=== PATIENT | male | born 1960 | race Caucasian/White ===

== ENCOUNTER 2025-06-05 13:44 | Inpatient (IN) | payer BC, SELFPAY ==
[2025-06-05] VITALS (8 sets, daily range): BP systolic 139–209; BP diastolic 70–99; PULSE 53–65; RESP 12–19; TEMP 36.5–36.6; O2SAT 95–99; BMI 31.8
--- NOTE | ~2025-06-05 | CT_ITS ---
EXAMINATION: CT HEAD WITHOUT CONTRAST CLINICAL INFORMATION: Altered mental status COMPARISON: None available. TECHNIQUE: Contiguous axial imaging was performed from the skull base to vertex without intravenous administration of contrast. This CT examination was performed using dose optimization techniques as appropriate, variously including the following: *Automated exposure control *Adjustment of mA and/or kV according to patient size (this includes techniques or standardized protocols for targeted exams where dose is matched to indication/reason for exam; i.e. extremities or head) *Use of iterative reconstruction technique DLP: 882 mGY*cm FINDINGS: There is no acute ischemic change. There is multifocal periventricular hypodensity in the white matter. There is mild frontal temporal atrophy. There is no intracranial hemorrhage. There is no mass-effect or midline shift. Basal cisterns and ventricles are within normal limits for age/cerebral volume. Orbits are symmetrical and unremarkable. Paranasal sinuses and mastoid air cells are pneumatized. There are no bony abnormalities. CT/CT head/brain wo IV con IMPRESSION: No acute intracranial abnormality. Electronically signed by: Amrit Villasenor MD 06/07/2025 12:12 PM EDT
--- NOTE | ~2025-06-05 | MR_ITS ---
EXAMINATION: MR BRAIN WITHOUT IV CONTRAST HISTORY: ams, echolalia TECHNIQUE: Sagittal T1, and axial T1, FLAIR, T2, gradient echo, and diffusion weighted MR images of the brain were obtained. COMPARISON: Correlation is made with an unenhanced head CT dated 06/07/2025. FINDINGS: There are periventricular and subcortical white matter hyperintensities on the FLAIR and T2-weighted images which are nonspecific, but often seen in the setting of small vessel ischemic disease. 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 The ventricular system is normal in size and configuration. The pituitary is normal in size. The cerebellar tonsils are normally located. There is no mass effect or midline shift. There is no evidence of acute intracranial hemorrhage. There are no foci of restricted diffusion. Normal vascular flow voids are noted in the basilar and carotid arteries. The visualized paranasal sinuses are clear. MR/MR head/brain wo con IMPRESSION: No acute intracranial abnormality. Electronically signed by: Samy Solis MD 06/08/2025 03:19 PM EDT
--- NOTE | ~2025-06-05 | CT_ITS ---
CLINICAL HISTORY: rashawn, URINARY RETENTION ON POCUS CT abdomen and pelvis without IV contrast. COMPARISON: None provided. FINDINGS: Partially visualized lung bases are unremarkable. Multiple cholelithiasis present within the gallbladder. No pericholecystic inflammatory changes. Well-defined hypoattenuating lesions present within the liver measuring up to 2.0 cm, largest are consistent with hepatic cysts and smaller ones are too small to further characterize but also likely represent hepatic cysts or hemangiomas. Noncontrast appearance of the spleen, pancreas and adrenal glands are unremarkable. Small extrarenal pelvis present on the left. No left renal or ureteral calculus. Right renal cystic lesion measuring up to 6.2 cm. There is mild edema along the right renal pelvis. Moderate right hydronephrosis. Mild right hydroureter. No right renal or ureteral calculus. Diminutive appendix. No bowel obstruction. No mesenteric or retroperitoneal lymphadenopathy. Normal abdominal aorta. Velasquez catheter present within the contracted urinary bladder. Small amount of gas within the urinary bladder is likely secondary to instrumentation. No inguinal lymphadenopathy. Mild edema within the presacral soft tissues. [id number] spondylosis. No acute fracture or suspicious bone lesion. IMPRESSION: 1. Mild inflammatory changes along the right kidney raises suspicion for pyelonephritis. No renal or ureteral calculus bilaterally. 2. Cholelithiasis. No stigmata of cholecystitis. This document has been electronically signed by: Reji Márquez MD on 06/05/2025 20:06:18
[2025-06-05 16:30] LABS: MANUAL DIFF FLAG NO
[2025-06-05 16:34] LABS: Appearance Urine Cloudy; Glucose Urine UA Negative (Negative); PH 5.5 (5.0-9.0); Specific Gravity - Urine 1.010 (1.005-1.025); UMIC TRIGGER UACC YES
[2025-06-05 16:40] LABS: Hematocrit 39.7 % (42.0-52.0); Hemoglobin 13.5 g/dl (14.0-18.0); Imm Gran Abs Auto 0.04 X10*3/uL (0.00-0.03); Imm Gran Pct Auto 0.4 % (0.0-0.4); Lymphocytes Absolute Auto 2.0 X10*3/uL (1.2-4.9); Mean Corpuscular HGB Conc 34.0 g/dl (31.0-36.0); Mean Corpuscular Hemoglobin 31.1 pg (27.0-33.0); Mean Corpuscular Volume 91.5 fL (80.0-98.0); NRBC Abs Auto 0.000 X10*3/uL (0.0-0.012); NRBC Pct Auto 0.0 /100WBC (0.0-0.2); Platelet Count 421 X10*3/uL (160-400); Red Blood Count 4.34 X10*6/uL (4.60-5.80); White Blood Count 9.5 X10*3/uL (4.8-10.8)
[2025-06-05 16:51] LABS: Other Crystals Urine Present
[2025-06-05 16:53] LABS: Alanine Aminotransferase 17 U/L (0-40); Albumin Level 4.2 g/dL (3.5-5.0); Alkaline Phosphatase 74 U/L (39-117); Anion Gap 17 (12-20); Aspartate Amino Transferase 20 U/L (5-37); Blood Urea Nitrogen 65 mg/dL (9-16); Calcium 9.3 mg/dL (8.4-10.2); Carbon Dioxide 18 mmol/L (22-29); Chloride 111 mmol/L (96-108); Creatinine Clr Calc Pharmacy 6.0; Estimated Glomerular Filt Rate 4; Magnesium 2.4 mg/dL (1.6-2.6); Potassium 6.0 mmol/L (3.3-5.1); Sodium 140 mmol/L (135-145); Total Protein 7.5 g/dL (6.5-8.0)
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
--- NOTE | 2025-06-05 18:10 | ECG_ITS ---
Test Reason : HYPERKALEMIA Blood Pressure : */* mmHG Vent. Rate : 58 BPM Atrial Rate : 58 BPM P-R Int : 154 ms QRS Dur : 86 ms QT Int : 400 ms P-R-T Axes : 21 -24 12 degrees QTcB Int : 392 ms Sinus bradycardia Minimal voltage criteria for LVH, may be normal variant ( R in aVL ) Borderline ECG No previous ECGs available Referred By: Ángel Peres Electronically Signed By: LAYLA DE LA CRUZ
[2025-06-05] MEDS: Lidocaine HCl 2 % Urojet 10 ML JEL.PF.APP TOPICAL (18:32)
[2025-06-05] MEDS: Furosemide 40 MG/4 ML VIAL IVPUSH (19:12)
[2025-06-05 19:26] LABS: VBG HCO3 17 mmol/L (22-26); VBG O2 % Saturation 82.0 %
[2025-06-05 19:26] LABS: Venous Blood Gas Refer to POC result
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
--- NOTE | 2025-06-05 20:12 | PHA.MEDREC ---
Pharmacy Consult ? Medication Reconciliation Pharmacy has completed the medication reconciliation. med rec complete using medical records and pharmacy claims
[2025-06-05] MEDS: Calcium Gluconate/NaCl,Iso-Osm 2 GM/100 ML PLAST..BAG IV (20:17)
[2025-06-05] MEDS: Lactated Ringers 1,000 ML 100 ML IVCONT (21:55)
[2025-06-06] VITALS (8 sets, daily range): BP systolic 154–178; BP diastolic 72–118; PULSE 56–80; RESP 16–20; TEMP 36.5–37.1; O2SAT 93–97; BMI 28.9
[2025-06-06 04:56] LABS: Hematocrit 41.8 % (42.0-52.0); Hemoglobin 14.3 g/dl (14.0-18.0); Mean Corpuscular HGB Conc 34.2 g/dl (31.0-36.0); Mean Corpuscular Hemoglobin 31.0 pg (27.0-33.0); Mean Corpuscular Volume 90.7 fL (80.0-98.0); NRBC Abs Auto 0.000 X10*3/uL (0.0-0.012); NRBC Pct Auto 0.0 /100WBC (0.0-0.2); Platelet Count 424 X10*3/uL (160-400); Red Blood Count 4.61 X10*6/uL (4.60-5.80); White Blood Count 8.9 X10*3/uL (4.8-10.8)
[2025-06-06 05:26] LABS: Anion Gap 19 (12-20); Blood Urea Nitrogen 45 mg/dL (9-16); Calcium 10.0 mg/dL (8.4-10.2); Carbon Dioxide 18 mmol/L (22-29); Chloride 111 mmol/L (96-108); Creatinine Clr Calc Pharmacy 13.6; Estimated Glomerular Filt Rate 9; Potassium 6.2 mmol/L (3.3-5.1); Sodium 142 mmol/L (135-145)
[2025-06-06] MEDS: Calcium Gluconate/NaCl,Iso-Osm 2 GM/100 ML PLAST..BAG IV (06:26)
[2025-06-06] MEDS: Lactated Ringers 1,000 ML 100 ML IVCONT (07:34)
--- NOTE | 2025-06-06 09:19 | P.CONNP_ITS ---
History of Present Illness Reason for Consult Consult date: 06/06/25 Chief Complaint Chief complaint: difficulty urinating History of Present Illness Narrative: 65 y/o male with no known medial history and not taking any prescription medication- reports has not been seen by a doctor in 30+ years. Takes PRN aleve for back pain. 06/05 patient reports he came in with sweating- denies urinary incontinence. creatinine was 14.18, K 6.0, serum bicarb 17. UA wtihout protein, +blood, +WBCs. melendez catheter was placed and drained 1300cc urine. CT subsequently done post melendez insertion: moderate right hydro and mild hydroureter, no stones. Mild inflammatory changes in kidney, suspicious for pyelonephritis- patient started on abx. He is on LR at 100ml/hr. creatinine this a.m. down to 6.31- about 12 hours after creatinine 14.18 patient reports he is feeling in his normal state of health. Melendez catheter is in place. Patient reports catheter insertion was painful, otherwise no concerns/complaints. Review of Systems Constitutional: Reports no additional constitutional complaints Cardiovascular: Denies chest pain, Denies leg edema, Denies lightheadedness and Denies dyspnea Respiratory: Denies dyspnea Gastrointestinal: Denies abdominal pain, Denies diarrhea, Denies nausea and Denies vomiting Genitourinary: Denies hematuria, Reports oliguria, Reports difficulty urinating, Denies dysuria and Denies flank pain Musculoskeletal: Denies back pain and Denies arthralgias Skin/Breast: Denies rash PMFSH Social History Social History Patient Tobacco Use Status: Never used Tobacco Smoked in Last 30 Days: No Use of substances other than those prescribed or required for medical reasons: No Advance Directives: No Advance Directives Information Provided: No Nutrition Risks: No Nutritional Risk Meds Allergies Allergy/AdvReac Type Severity Reaction Status Date / Time No Known Allergies Allergy Verified 06/05/25 14:09 Active Medications: Current Medications Acetaminophen (Acetaminophen 325 Mg Tablet) 650 mg PO Q6H PRN PRN Reason: Pain, Mild 1-3,fever,headache Calcium Carbonate (Calcium Carbonate 750 Mg Tab.Chew) 750 mg PO Q4H PRN PRN Reason: Heartburn Ceftriaxone Sodium (Ceftriaxone Sodium 1 Gm Vial) 1 gm IVPUSH Q24H [facility] Last Admin: 06/05/25 21:50 Dose: 1 gm Heparin Sodium (Porcine) (Heparin Sodium,Porcine 5,000 Unit/Ml Vial) 5,000 unit SUBCUT Q12H [facility] Last Admin: 06/06/25 08:28 Dose: 5,000 unit Lactated Ringer's (Lr) 1,000 mls @ 100 mls/hr IVCONT .Q10H [facility] Last Admin: 06/06/25 07:34 Dose: 100 mls/hr Magnesium Hydroxide (Milk Of Magnesia 30 Ml Oral.Susp) 30 ml PO DAILY PRN PRN Reason: Constipation Melatonin (Melatonin 3 Mg Tablet) 6 mg PO BEDTIME PRN PRN Reason: Insomnia Ondansetron HCl (Ondansetron Hcl 4 Mg/2 Ml Vial) 4 mg IVPUSH Q8H PRN PRN Reason: Nausea and Vomiting Sodium Chloride (0.9 % Sodium Chloride Flush 3 Ml Syringe) 3 ml IVFLUSH QSHIFT [facility] Last Admin: 06/06/25 07:34 Dose: Not Given Home Medications ?Medication ?Instructions ?Recorded ?Confirmed ?Last Taken ?Type No Known Home Meds 06/05/25 06/05/25 Un known History Physical Exam Vital Signs: Last Vital Signs Temp 98.0 F 06/06/25 06:13 Pulse 71 06/06/25 06:13 Resp 17 06/06/25 06:13 BP 166/118 H 06/06/25 06:13 Pulse Ox 97 06/06/25 06:13 O2 Del Method Nasal Cannula 06/06/25 06:13 O2 Flow Rate 2 06/06/25 06:13 BMI result Body Mass Index 31.8 Const General: no acute distress, alert and awake Resp Effort & Inspection: normal respiratory effort and able to speak in complete sentences Auscultation: clear to auscultation bilaterally Cardio Rate: regular rate Rhythm: regular rhythm Heart sounds: S1 normal heart sound present and S2 normal heart sound present GI Palpation (GI): Soft to palpation and nontender General: Yes no CVA tenderness Back/Spine/Pelvis Back: no CVA tenderness Skin Rashes: no rashes Extrem General: Yes edema (trace BLE edema) Results Lab Results 06/06/25 04:36 06/06/25 04:36 Lab results: Chemistry 06/05/25 06/06/25 16:25 04:36 Sodium 140 142 Potassium 6.0 H* 6.2 H* Carbon Dioxide 18 L 18 L BUN 65 H 45 H Creatinine 14.18 H* 6.31 H* Calcium 9.3 10.0 D Hematology 06/05/25 06/06/25 16:25 04:36 WBC 9.5 8.9 Hgb 13.5 L 14.3 Plt Count 421 H 424 H Urinalysis 06/05/25 16:15 Urine Color Yellow Urine Appearance Cloudy Urine pH 5.5 Ur Specific [place] 1.010 Urine Protein Negative Urine Glucose (UA) Negative Urine Ketones Negative Urine Blood Moderate (2+) H Urine Nitrite Negative Ur Leukocyte Esterase Trace H Urine RBC >20 H Urine WBC 0-5 Ur Squamous Epith Cells 0-2 Hyaline Casts 0-2 Assessment and Plan (1) Acute renal failure: Qualifiers: Acute renal failure type: unspecified Qualified Code(s): N17.9 - Acute kidney failure, unspecified Status: Acute (2) Hydronephrosis, right: Status: Acute (3) Urinary obstruction: Status: Acute Plan GUILLERMO secondary to urinary obstruction renal function is improving with resolution of obstruction. Anticipate continued improvement to baseline creatinine now that obstruction is resolved. Unclear baseline creatinine. Recommend re-checking renal function and electrolytes this afternoon. PRN lokelma for hyperkalemia. recommend urology consult recommend daily renal function and electrolyte studies recommend I&O monitoring, blood pressure checks recommend avoiding nephrotoxins continue supportive care Discussed with Dr Abreu Procedures Date of Service Date of Service: 06/06/25
--- NOTE | 2025-06-06 10:18 | HO.PM.IMPN ---
Subjective Subjective Date of Service: 06/06/25 Interval History: no complaints Physical Exam Vital Signs: Vital Signs: Last Vital Signs Temp 98.0 F 06/06/25 06:13 Pulse 71 06/06/25 06:13 Resp 17 06/06/25 06:13 BP 166/118 H 06/06/25 06:13 Pulse Ox 97 06/06/25 06:13 O2 Del Method Nasal Cannula 06/06/25 06:13 O2 Flow Rate 2 06/06/25 06:13 BMI result Body Mass Index 31.8 General: AO X 3, no acute distress Resp: CTA bilateral, no accessory muscles used CVS: S1,S2,RRR GI: soft, non tender, non distended Neuro: motor grossly intact, alert Psych: appropriate affect, appropriate insight Objective Data Active Medications Acetaminophen (Acetaminophen 325 Mg Tablet) 650 mg PO Q6H PRN PRN Reason: Pain, Mild 1-3,fever,headache Calcium Carbonate (Calcium Carbonate 750 Mg Tab.Chew) 750 mg PO Q4H PRN PRN Reason: Heartburn Ceftriaxone Sodium (Ceftriaxone Sodium 1 Gm Vial) 1 gm IVPUSH Q24H [facility] Last Admin: 06/05/25 21:50 Dose: 1 gm Documented By: MILADYS Heparin Sodium (Porcine) (Heparin Sodium,Porcine 5,000 Unit/Ml Vial) 5,000 unit SUBCUT Q12H [facility] Last Admin: 06/06/25 08:28 Dose: 5,000 unit Documented By: GABBIE Lactated Ringer's (Lr) 1,000 mls @ 100 mls/hr IVCONT .Q10H [facility] Last Admin: 06/06/25 07:34 Dose: 100 mls/hr Documented By: GABBIE Magnesium Hydroxide (Milk Of Magnesia 30 Ml Oral.Susp) 30 ml PO DAILY PRN PRN Reason: Constipation Melatonin (Melatonin 3 Mg Tablet) 6 mg PO BEDTIME PRN PRN Reason: Insomnia Ondansetron HCl (Ondansetron Hcl 4 Mg/2 Ml Vial) 4 mg IVPUSH Q8H PRN PRN Reason: Nausea and Vomiting Sodium Chloride (0.9 % Sodium Chloride Flush 3 Ml Syringe) 3 ml IVFLUSH QSHIFT [facility] Last Admin: 06/06/25 07:34 Dose: Not Given Documented By: GABBIE Non-Admin Reason: IV Running Labs 06/06/25 04:36 06/06/25 04:36 Labs: Laboratory Results - last 24 hr 06/05/25 06/05/25 06/05/25 16:15 16:25 19:22 MCV 91.5 MCH 31.1 MCHC 34.0 RDW 12.2 Plt Count 421 H MPV 10.1 Immature Gran % (Auto) 0.4 Neut % (Auto) 66.4 Lymph % (Auto) 20.8 [place] % (Auto) 8.1 Eos % (Auto) 3.3 Baso % (Auto) 1.0 Lymph # (Auto) 2.0 [place] # (Auto) 0.8 Eos # (Auto) 0.3 Baso # (Auto) 0.1 Abs Immat Gran (auto) 0.04 H Absolute Neuts (auto) 6.3 Absolute Nucleated RBC 0.000 Nucleated RBC % (auto) 0.0 VBG pH 7.23 L VBG pCO2 40 VBG pO2 59 VBG HCO3 17 L VBG O2 Saturation 82.0 VBG Base Excess -9.5 Anion Gap 17 Estim Creat Clear Calc 6.0 Estimated GFR 4 Random Glucose 113 Calcium 9.3 Magnesium 2.4 Total Bilirubin 0.2 AST 20 ALT 17 Alkaline Phosphatase 74 Total Creatine Kinase 47 Total Protein 7.5 Albumin 4.2 Urine Color Yellow Urine Appearance Cloudy Urine pH 5.5 Ur Specific [place] 1.010 Urine Protein Negative Urine Glucose (UA) Negative Urine Ketones Negative Urine Blood Moderate (2+) H Urine Nitrite Negative Ur Leukocyte Esterase Trace H Urine RBC >20 H Urine WBC 0-5 Ur Squamous Epith Cells 0-2 Other Crystals Present Urine Bacteria None Seen Hyaline Casts 0-2 06/06/25 04:36 MCV 90.7 MCH 31.0 MCHC 34.2 RDW 12.3 Plt Count 424 H MPV 10.5 Immature Gran % (Auto) Neut % (Auto) Lymph % (Auto) [place] % (Auto) Eos % (Auto) Baso % (Auto) Lymph # (Auto) [place] # (Auto) Eos # (Auto) Baso # (Auto) Abs Immat Gran (auto) Absolute Neuts (auto) Absolute Nucleated RBC 0.000 Nucleated RBC % (auto) 0.0 VBG pH VBG pCO2 VBG pO2 VBG HCO3 VBG O2 Saturation VBG Base Excess Anion Gap 19 Estim Creat Clear Calc 13.6 Estimated GFR 9 Random Glucose 98 Calcium 10.0 D Magnesium Total Bilirubin AST ALT Alkaline Phosphatase Total Creatine Kinase Total Protein Albumin Urine Color Urine Appearance Urine pH Ur Specific [place] Urine Protein Urine Glucose (UA) Urine Ketones Urine Blood Urine Nitrite Ur Leukocyte Esterase Urine RBC Urine WBC Ur Squamous Epith Cells Other Crystals Urine Bacteria Hyaline Casts Assessment and Plan (1) Hydronephrosis, right: Status: Acute Plan 65M no significant pmh presented with weakness found to have GUILLERMO and urinary retention GUILLERMO due to urinary retention, hyperkalemia melendez, ivf, monitor labs, nephro and following starting flomax dvt prophylaxis - hep sq full code reason for continued hospitalization:guillermo, hyperkalemia Quality Stroke Does the patient have a stroke diagnosis?: No VTE Prior VTE?: No VTE Risk Level:: Medical - moderate - high VTE Device Contraindication: Treatment Not Indicated VTE Drug Contraindication: N/A - Med Ordered
[2025-06-06] MEDS: Sodium Bicarbonate 8.4% 150 MEQ in Dextrose 5 % 850 ML 100 MEQ IV (12:29)
[2025-06-06 13:24] LABS: Anion Gap 17 (12-20); Blood Urea Nitrogen 30 mg/dL (9-16); Calcium 10.4 mg/dL (8.4-10.2); Carbon Dioxide 21 mmol/L (22-29); Chloride 108 mmol/L (96-108); Creatinine Clr Calc Pharmacy 24.8; Estimated Glomerular Filt Rate 18; Potassium 5.3 mmol/L (3.3-5.1); Sodium 141 mmol/L (135-145)
--- NOTE | 2025-06-06 14:31 | MHC.CM.PN ---
Pt lives alone, he does not have a PCP, Cm asked if he wanted info on getting one, he did not answer. 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 Pt. can arrange a ride home at DC. CM will follow for DC needs.
[2025-06-06] MEDS: 0.9 % Sodium Chloride Flush 3 ML SYRINGE IVFLUSH ×2 (14:43→20:32)
[2025-06-06 16:22] LABS: Anion Gap 14 (12-20); Blood Urea Nitrogen 28 mg/dL (9-16); Calcium 10.5 mg/dL (8.4-10.2); Carbon Dioxide 25 mmol/L (22-29); Chloride 109 mmol/L (96-108); Creatinine Clr Calc Pharmacy 27.2; Estimated Glomerular Filt Rate 21; Potassium 5.0 mmol/L (3.3-5.1); Sodium 143 mmol/L (135-145)
--- NOTE | 2025-06-06 17:12 | P.CNUR_ITS ---
History of Present Illness Consult details Consult date: 06/06/25 Narrative: CC: Acute urinary retention - with acute kidney injury 65-year-old male Presents to emergency room with chills and difficulty urination Has no regular medical interaction Baseline labs creatinine 14, potassium 6, BUN 65 Initiate a Nephrology protocol on bicarb Velasquez catheter placed for only 300 cc output Per documentation had 1600 cc in ER. Discrepancy between initial output and subsequent output. May have element of postobstructive diuresis Creatinine has fallen from 14 to 3 over 24 hours, WBC 8.9, UA positive blood trace leukocytes no bacteria Imaging - CT There is mild edema along the right renal pelvis. Moderate right hydronephrosis. Mild right hydroureter. No right renal or ureteral calculus. Recommend Velasquez catheter to remain to creatinine normal range then voiding trial to be performed after minimum 24 hours on alpha-davide Review of Systems 2 Constitutional: Constitutional: Denies chills and Denies fever(s) Cardiovascular: Cardiovascular: Reports no additional cardiovascular complaints and Denies syncope Respiratory: Respiratory: Denies cough Gastrointestinal: Gastrointestinal: Denies abdominal pain and Denies heartburn Genitourinary: Genitourinary: Reports as per HPI and Denies change in libido Neurologic: Denies syncope Psychiatric: Psychiatric: Denies change in libido Endocrine: Endocrine: Denies change in libido [facility] Social History Social History Household Members: None Housing: Other Housing Other:: MOBILE HOME Do you presently have visiting nurse or other home services: No Patient Tobacco Use Status: Never used Tobacco service: Yes Meds Allergies Allergy/AdvReac Type Severity Reaction Status Date / Time No Known Allergies Allergy Verified 06/05/25 14:09 Active Medications: Current Medications Acetaminophen (Acetaminophen 325 Mg Tablet) 650 mg PO Q6H PRN PRN Reason: Pain, Mild 1-3,fever,headache Calcium Carbonate (Calcium Carbonate 750 Mg Tab.Chew) 750 mg PO Q4H PRN PRN Reason: Heartburn Ceftriaxone Sodium (Ceftriaxone Sodium 1 Gm Vial) 1 gm IVPUSH Q24H [facility] Last Admin: 06/05/25 21:50 Dose: 1 gm Heparin Sodium (Porcine) (Heparin Sodium,Porcine 5,000 Unit/Ml Vial) 5,000 unit SUBCUT Q12H [facility] Last Admin: 06/06/25 08:28 Dose: 5,000 unit Sodium Bicarbonate 150 meq/ (Dextrose) 1,000 mls @ 100 mls/hr IV .Q10H [facility] Last Admin: 06/06/25 12:29 Dose: 100 mls/hr Magnesium Hydroxide (Milk Of Magnesia 30 Ml Oral.Susp) 30 ml PO DAILY PRN PRN Reason: Constipation Melatonin (Melatonin 3 Mg Tablet) 6 mg PO BEDTIME PRN PRN Reason: Insomnia Ondansetron HCl (Ondansetron Hcl 4 Mg/2 Ml Vial) 4 mg IVPUSH Q8H PRN PRN Reason: Nausea and Vomiting Sodium Chloride (0.9 % Sodium Chloride Flush 3 Ml Syringe) 3 ml IVFLUSH QSHIFT [facility] Last Admin: 06/06/25 14:43 Dose: 3 ml Tamsulosin HCl (Tamsulosin Hcl 0.4 Mg Capsule) 0.4 mg PO BEDTIME [facility] Home Medications ?Medication ?Instructions ?Recorded ?Confirmed ?Last Taken ?Type No Known Home Meds 06/05/25 06/05/25 Un known History Physical Exam 2 Vital Signs: Vital Signs: Last Vital Signs Temp 98.6 F 06/06/25 15:18 Pulse 70 06/06/25 15:18 Resp 16 06/06/25 15:18 BP 158/72 H 06/06/25 15:18 Pulse Ox 93 06/06/25 15:18 O2 Del Method Room Air 06/06/25 15:18 O2 Flow Rate 2 06/06/25 06:13 BMI result Body Mass Index 28.9 Const: General: cooperative, healthy appearing, comfortable and no acute distress Orientation/consciousness: patient oriented x3 HEENT: Face and sinus: Yes normal facial exam Mouth: moist mucous membranes Neck: Neck: Yes normal visual inspection, Yes full ROM and Yes trachea midline Chest: Chest palpation & inspection: normal inspection of the chest Resp: Effort & Inspection: normal respiratory effort, able to speak in complete sentences and no respiratory distress GI: Inspection: Yes normal to inspection Back/Spine/Pelvis: Cervical Spine: normal cervical lordosis Thoracic/Lumbar Spine: thoracic and lumbar spine normal to inspection Skin: General skin exam: no rashes or lesions noted Neuro: General: patient oriented x3, gait normal, tone normal and moves all extremities Extrem: General: Yes normal to inspection and Yes capillary refill normal Results Labs 06/06/25 04:36 06/06/25 15:54 Labs: Abnormal lab results 06/05/25 06/06/25 06/06/25 Range/Units 19:22 04:36 13:01 Hct 41.8 L (42.0-52.0) % Plt Count 424 H (160-400) X10*3/uL VBG pH 7.23 L (7.32-7.43) VBG HCO3 17 L (22-26) mmol/L Potassium 6.2 H* 5.3 H (3.3-5.1) mmol/L Chloride 111 H (96-108) mmol/L Carbon Dioxide 18 L 21 L (22-29) mmol/L BUN 45 H 30 H (9-16) mg/dL Creatinine 6.31 H* 3.46 H (0.5-1.4) mg/dL Random Glucose (60-115) mg/dL Calcium 10.4 H (8.4-10.2) mg/dL 06/06/25 Range/Units 15:54 Hct (42.0-52.0) % Plt Count (160-400) X10*3/uL VBG pH (7.32-7.43) VBG HCO3 (22-26) mmol/L Potassium (3.3-5.1) mmol/L Chloride 109 H (96-108) mmol/L Carbon Dioxide (22-29) mmol/L BUN 28 H (9-16) mg/dL Creatinine 3.02 H (0.5-1.4) mg/dL Random Glucose 130 H (60-115) mg/dL Calcium 10.5 H (8.4-10.2) mg/dL Short CBC 06/06/25 Range/Units 04:36 WBC 8.9 (4.8-10.8) X10*3/uL Hgb 14.3 (14.0-18.0) g/dl Hct 41.8 L (42.0-52.0) % Plt Count 424 H (160-400) X10*3/uL BMP 06/06/25 06/06/25 06/06/25 04:36 13:01 15:54 Sodium 142 141 143 Potassium 6.2 H* 5.3 H 5.0 Chloride 111 H 108 109 H Carbon Dioxide 18 L 21 L 25 BUN 45 H 30 H 28 H Creatinine 6.31 H* 3.46 H 3.02 H Calcium 10.0 D 10.4 H 10.5 H Cardiac Enzymes 06/05/25 Range/Units 16:25 Total Creatine Kinase 47 (38-174) U/L Urine 06/05/25 Range/Units 16:15 Urine Color Yellow Urine Appearance Cloudy Urine pH 5.5 (5.0-9.0) Ur Specific [place] 1.010 (1.005-1.025) Urine Protein Negative (Neg-Trace) mg/dL Urine Glucose (UA) Negative (Negative) mg/dL All other labs normal. Assessment and Plan (1) Urinary obstruction: Status: Acute (2) Acute renal failure: Qualifiers: Acute renal failure type: unspecified Qualified Code(s): N17.9 - Acute kidney failure, unspecified Status: Acute (3) Hydronephrosis, right: Status: Acute Plan Nephrology recommendations for management of diuresis and acute kidney injury Discharge with tamsulosin Follow-up with urology Procedures Date of Service Date of Service: 06/06/25
--- NOTE | 2025-06-07 | EEG_ITS ---
Disease 16 channel EEG with an EKG lead. patient is awake during the tracing. Background EEG rhythm is slow alpha to theta range medium amplitude with no obvious paroxysmal tendency. No sharp waves or spikes are noted. Some lead and muscle artifacts are noted. Photic stimulation does not produce any significant driving. Cardiac lead does not reveal any significant abnormality. Impression: Abnormal EEG with generalized slowing without any epileptic discharges. MTDD
[2025-06-07] MEDS: Sodium Bicarbonate 8.4% 150 MEQ in Dextrose 5 % 850 ML 100 MEQ IV (01:43)
[2025-06-07 07:26] VITALS: BP 157/83; PULSE 75; RESP 18; TEMP 36.4; O2SAT 96
[2025-06-07 07:38] LABS: Hematocrit 42.7 % (42.0-52.0); Hemoglobin 15.1 g/dl (14.0-18.0); Mean Corpuscular HGB Conc 35.4 g/dl (31.0-36.0); Mean Corpuscular Hemoglobin 31.1 pg (27.0-33.0); Mean Corpuscular Volume 88.0 fL (80.0-98.0); NRBC Abs Auto 0.000 X10*3/uL (0.0-0.012); NRBC Pct Auto 0.0 /100WBC (0.0-0.2); Platelet Count 436 X10*3/uL (160-400); Red Blood Count 4.85 X10*6/uL (4.60-5.80); White Blood Count 13.1 X10*3/uL (4.8-10.8)
[2025-06-07 07:56] LABS: Anion Gap 12 (12-20); Blood Urea Nitrogen 17 mg/dL (9-16); Calcium 10.2 mg/dL (8.4-10.2); Carbon Dioxide 26 mmol/L (22-29); Chloride 104 mmol/L (96-108); Creatinine Clr Calc Pharmacy 49.5; Estimated Glomerular Filt Rate 42; Magnesium 1.5 mg/dL (1.6-2.6); Potassium 4.4 mmol/L (3.3-5.1); Sodium 138 mmol/L (135-145)
[2025-06-07] MEDS: Magnesium Sulfate/H2O 2 GM/50 ML PIGGYBACK IV (08:46)
[2025-06-07] MEDS: Lactated Ringers 1,000 ML 125 ML IVCONT ×3 (08:48→23:38)
--- NOTE | 2025-06-07 10:37 | P.PNNP_ITS ---
Subjective Subjective Date of Service: 06/07/25 Interval history: following for GUILLERMO secondary to urinary obstruction. creatinine has dramatically improved, baseline is unknown. Pt denies new symptoms today. Velasquez is still- plan for removal and voiding Physical Exam 2 Vital Signs: Vital Signs: Last Vital Signs Temp 97.5 F 06/07/25 07:26 Pulse 75 06/07/25 07:26 Resp 18 06/07/25 07:26 BP 157/83 H 06/07/25 07:26 Pulse Ox 96 06/07/25 07:26 O2 Del Method Room Air 06/07/25 07:26 O2 Flow Rate 2 06/06/25 06:13 BMI result Body Mass Index 28.9 Const: General: no acute distress, alert and awake Resp: Effort & Inspection: normal respiratory effort and able to speak in complete sentences Auscultation: clear to auscultation bilaterally Cardio: Rate: regular rate Rhythm: regular rhythm Heart sounds: S1 normal heart sound present and S2 normal heart sound present GI: Palpation (GI): Soft to palpation and nontender : General: Yes no CVA tenderness Back/Spine/Pelvis: Back: no CVA tenderness Skin: Rashes: no rashes Extrem: General: Yes edema (trace BLE edema) Objective Data Labs 06/07/25 07:30 06/07/25 07:30 Labs: Laboratory Results - last 24 hr 06/06/25 06/06/25 06/07/25 13:01 15:54 07:30 WBC 13.1 H RBC 4.85 Hgb 15.1 Hct 42.7 MCV 88.0 MCH 31.1 MCHC 35.4 RDW 11.9 Plt Count 436 H MPV 10.0 Absolute Nucleated RBC 0.000 Nucleated RBC % (auto) 0.0 Sodium 141 143 138 Potassium 5.3 H 5.0 4.4 Chloride 108 109 H 104 Carbon Dioxide 21 L 25 26 Anion Gap 17 14 12 BUN 30 H 28 H 17 H Creatinine 3.46 H 3.02 H 1.66 H Estim Creat Clear Calc 24.8 27.2 49.5 Estimated GFR 18 21 42 Random Glucose 94 130 H 140 H Calcium 10.4 H 10.5 H 10.2 Magnesium 1.5 L Procedures Date of Service Date of Service: 06/07/25 Assessment & Plan Assessment and plan (1) GUILLERMO (acute kidney injury): Status: Acute Plan GUILLERMO secondary to urinary obstruction renal function is improving with resolution of obstruction. Anticipate continued improvement to baseline creatinine now that obstruction is resolved. Unclear baseline creatinine. Given creatinine is 1.66 today and hyperkalemia has resolved, patient is ok for discharge from a renal standpoint. We will arrange a follow up appointment in the outpatient nephrology clinic. recommend avoiding nephrotoxins continue supportive care Discussed with Dr Abreu Time Spent With Patient Time: Total time managing care of this patient today ____ minutes. Progress Note: Quality Stroke Does the patient have a stroke diagnosis?: No
--- NOTE | 2025-06-07 10:46 | P.PNIM_ITS ---
Subjective Subjective Date of Service: 06/07/25 Interval History: pain at catheter Physical Exam 2 Vital Signs: Vital Signs: Last Vital Signs Temp 97.5 F 06/07/25 07:26 Pulse 75 06/07/25 07:26 Resp 18 06/07/25 07:26 BP 157/83 H 06/07/25 07:26 Pulse Ox 96 06/07/25 07:26 O2 Del Method Room Air 06/07/25 07:26 O2 Flow Rate 2 06/06/25 06:13 BMI result Body Mass Index 28.9 Const: General: cooperative, healthy appearing, comfortable and no acute distress Orientation/consciousness: patient oriented x3 HEENT: Face and sinus: Yes normal facial exam Mouth: moist mucous membranes Neck: Neck: Yes normal visual inspection, Yes full ROM and Yes trachea midline Chest: Chest palpation & inspection: normal inspection of the chest Resp: Effort & Inspection: normal respiratory effort, able to speak in complete sentences and no respiratory distress GI: Inspection: Yes normal to inspection Back/Spine/Pelvis: Cervical Spine: normal cervical lordosis Thoracic/Lumbar Spine: thoracic and lumbar spine normal to inspection Skin: General skin exam: no rashes or lesions noted Neuro: General: patient oriented x3, gait normal, tone normal and moves all extremities Extrem: General: Yes normal to inspection and Yes capillary refill normal Objective Data Active Medications Acetaminophen (Acetaminophen 325 Mg Tablet) 650 mg PO Q6H PRN PRN Reason: Pain, Mild 1-3,fever,headache Last Admin: 06/07/25 05:00 Dose: 650 mg Documented By: ELIEZER Calcium Carbonate (Calcium Carbonate 750 Mg Tab.Chew) 750 mg PO Q4H PRN PRN Reason: Heartburn Ceftriaxone Sodium (Ceftriaxone Sodium 1 Gm Vial) 1 gm IVPUSH Q24H [facility] Last Admin: 06/06/25 20:33 Dose: 1 gm Documented By: ELIEZER Heparin Sodium (Porcine) (Heparin Sodium,Porcine 5,000 Unit/Ml Vial) 5,000 unit SUBCUT Q12H [facility] Last Admin: 06/07/25 07:55 Dose: Not Given Documented By: TYRON Non-Admin Reason: Physician Held Med Lactated Ringer's (Lr) 1,000 mls @ 125 mls/hr IVCONT .Q8H [facility] Last Admin: 06/07/25 08:48 Dose: 125 mls/hr Documented By: TYRON Magnesium Hydroxide (Milk Of Magnesia 30 Ml Oral.Susp) 30 ml PO DAILY PRN PRN Reason: Constipation Melatonin (Melatonin 3 Mg Tablet) 6 mg PO BEDTIME PRN PRN Reason: Insomnia Ondansetron HCl (Ondansetron Hcl 4 Mg/2 Ml Vial) 4 mg IVPUSH Q8H PRN PRN Reason: Nausea and Vomiting Sodium Chloride (0.9 % Sodium Chloride Flush 3 Ml Syringe) 3 ml IVFLUSH QSHIFT [facility] Last Admin: 06/07/25 07:55 Dose: Not Given Documented By: TYRON Non-Admin Reason: IV Running Tamsulosin HCl (Tamsulosin Hcl 0.4 Mg Capsule) 0.4 mg PO BEDTIME [facility] Last Admin: 06/06/25 20:31 Dose: 0.4 mg Documented By: ELIEZER Labs 06/07/25 07:30 06/07/25 07:30 Labs: Laboratory Results - last 24 hr 06/06/25 06/06/25 06/07/25 13:01 15:54 07:30 MCV 88.0 MCH 31.1 MCHC 35.4 RDW 11.9 Plt Count 436 H MPV 10.0 Absolute Nucleated RBC 0.000 Nucleated RBC % (auto) 0.0 Anion Gap 17 14 12 Estim Creat Clear Calc 24.8 27.2 49.5 Estimated GFR 18 21 42 Random Glucose 94 130 H 140 H Calcium 10.4 H 10.5 H 10.2 Magnesium 1.5 L Assessment and Plan (1) Hydronephrosis, right: Status: Acute Plan 65M no significant pmh presented with weakness found to have GUILLERMO and urinary retention GUILLERMO due to urinary retention, hyperkalemia resolved, continue flomax, voiding trial, outpatinet urology follow up dvt prophylaxis - hep sq full code reason for continued hospitalization:vaoiding trial Quality Stroke Does the patient have a stroke diagnosis?: No VTE Prior VTE?: No VTE Risk Level:: Medical - moderate - high VTE Device Contraindication: Treatment Not Indicated VTE Drug Contraindication: N/A - Med Ordered
[2025-06-07 11:21] VITALS: BP 141/92; PULSE 79; RESP 18; TEMP 36.4; O2SAT 96
[2025-06-07 11:44] LABS: Venous Blood Gas Refer to POC result
[2025-06-07 11:45] LABS: VBG HCO3 23 mmol/L (22-26); VBG O2 % Saturation 99.0 %
[2025-06-07 11:49] LABS: Ammonia 38 umol/L (13-55)
--- NOTE | 2025-06-07 13:13 | PM.EVENT ---
Event Note Date of Service: 06/07/25 Event Note: patient with episodes of confusion, slurred speech, starrin, comes and goes ammonia, vbg, normal cth no acute path, some atrophy sistere states no etoh history ?dementia with delerium will try low dose benzo neuro eval Time Spent With Patient Time: Total time managing care of this patient today ____ minutes.
[2025-06-07] MEDS: diazePAM 10 MG/2 ML CARTRIDGE 2.5 MG IVPUSH (13:24)
--- NOTE | 2025-06-07 13:40 | PC.NURSE ---
patient had 2 episodes of mental status change, staring off, not following commands, mumbling...md notified and head CT ordered, also EEG and neuro consult pending. bed alarm and camera in room temporarily for safety
--- NOTE | 2025-06-07 15:11 | MHC.CM.PN ---
Per rounds, pt. to have voiding trial and then DC. Per EMR review, today he had some episodes of cognitive confusion, follow up neuro and testing pending.
[2025-06-07 15:13] VITALS: BP 169/81; PULSE 62; RESP 16; TEMP 36.6; O2SAT 96
--- NOTE | 2025-06-07 17:02 | P.CNNE_ITS ---
History of Present Illness Data of Consult Service Date: 06/07/25 Primary Care Provider: None Physician HPI Reason for consult: Confusion, slurring and staring spells This is a 65-year-old man with no pertinent medical history and not on prescription medications who presented to the emergency department for evaluation of chills, difficulty urinating,and thinks that he wet his bed at night. Also thinks he had night sweats but isn't sure. Has some right-sided abdominal discomfort, nonradiating, intermittent. No documented fever, chest pain, palpitations, shortness of breath, changes in bowel habits. States he has never had difficulty with urination before Patient states he has not seen a doctor in about 3 decades. He does not know of any past medical history and does not take any prescription medications. He only takes an Aleve as needed for back pain when riding his motorcycle. He had elevated Creat of 14.2 and BUN 65 which mitchell scome down to 1.66/[address] scan of the brain shows white matter disease mostly in periventricular distribution and some out of proportion frontal lobe atrophy. [facility] Social History Social History Household Members: None Housing: Other Housing Other:: MOBILE HOME Do you presently have visiting nurse or other home services: No Patient Tobacco Use Status: Never used Tobacco service: Yes Meds Allergies Allergy/AdvReac Type Severity Reaction Status Date / Time No Known Allergies Allergy Verified 06/05/25 14:09 Active Medications: Current Medications Acetaminophen (Acetaminophen 325 Mg Tablet) 650 mg PO Q6H PRN PRN Reason: Pain, Mild 1-3,fever,headache Last Admin: 06/07/25 05:00 Dose: 650 mg Calcium Carbonate (Calcium Carbonate 750 Mg Tab.Chew) 750 mg PO Q4H PRN PRN Reason: Heartburn Ceftriaxone Sodium (Ceftriaxone Sodium 1 Gm Vial) 1 gm IVPUSH Q24H [facility] Last Admin: 06/06/25 20:33 Dose: 1 gm Heparin Sodium (Porcine) (Heparin Sodium,Porcine 5,000 Unit/Ml Vial) 5,000 unit SUBCUT Q12H [facility] Last Admin: 06/07/25 07:55 Dose: Not Given Lactated Ringer's (Lr) 1,000 mls @ 125 mls/hr IVCONT .Q8H [facility] Last Admin: 06/07/25 16:25 Dose: 125 mls/hr Magnesium Hydroxide (Milk Of Magnesia 30 Ml Oral.Susp) 30 ml PO DAILY PRN PRN Reason: Constipation Melatonin (Melatonin 3 Mg Tablet) 6 mg PO BEDTIME PRN PRN Reason: Insomnia Ondansetron HCl (Ondansetron Hcl 4 Mg/2 Ml Vial) 4 mg IVPUSH Q8H PRN PRN Reason: Nausea and Vomiting Sodium Chloride (0.9 % Sodium Chloride Flush 3 Ml Syringe) 3 ml IVFLUSH QSHIFT [facility] Last Admin: 06/07/25 15:37 Dose: Not Given Tamsulosin HCl (Tamsulosin Hcl 0.4 Mg Capsule) 0.4 mg PO BEDTIME [facility] Last Admin: 06/06/25 20:31 Dose: 0.4 mg Home Medications ?Medication ?Instructions ?Recorded ?Confirmed ?Last Taken ?Type No Known Home Meds 06/05/25 06/05/25 Un known History Physical Exam 2 Vital Signs: Vital Signs: Last Vital Signs Temp 97.9 F 06/07/25 15:13 Pulse 62 06/07/25 15:13 Resp 16 06/07/25 15:13 BP 169/81 H 06/07/25 15:13 Pulse Ox 96 06/07/25 15:13 O2 Del Method Room Air 06/07/25 15:13 O2 Flow Rate 2 06/06/25 06:13 BMI result Body Mass Index 28.9 Neuro: Other: The patient was arousable after initially being deeply asleep, and remained quite alert after initially being very drowsy. He has echolalia and keeps repeating similar sentences with poor with incorrect syntax about sleep and using wrong words, transposing words such as the bed is sleeping . He has some mixed dysphasia, primarily receptive dysphasia. I could not adequately test his visual ang because he keeps talking and not following commands. He is oriented to person only. Cranial nerves are otherwise normal with no facial asymmetry and full extraocular movements. There is no obvious drift of the upper extremities or limb weakness. Neck is supple. Results Labs 06/07/25 07:30 06/07/25 07:30 Labs: Short CBC 06/07/25 Range/Units 07:30 WBC 13.1 H (4.8-10.8) X10*3/uL Hgb 15.1 (14.0-18.0) g/dl Hct 42.7 (42.0-52.0) % Plt Count 436 H (160-400) X10*3/uL [facility] 06/07/25 07:30 Sodium 138 Potassium 4.4 Chloride 104 Carbon Dioxide 26 BUN 17 H Creatinine 1.66 H Calcium 10.2 Assessment and Plan (1) Altered mental status: Status: Acute He appears to have some receptive dysphagia and echolalia suggestive of left parietal lobe dysfunction which could be a small acute infarct or possibly a seizure focus in the left parietal area. I have personally reviewed the CT of the brain which shows some subtle white matter changes bilaterally. No acute findings. Recommendation: MRI of the brain. EEG. please call Dr. Luna for follow-up once the studies are completed as I will be away. Procedures Date of Service Date of Service: 06/07/25
--- NOTE | 2025-06-07 17:54 | PC.NURSE ---
Pt repeating the same thing with any question asked. Able to tell this RN his name and but no other questions. Does not appear to have pain
--- NOTE | 2025-06-07 18:06 | PC.NURSE ---
Pt unable to void after melendez removed. Bladder scanned for >894ml. Dr Jeffery notified and order placed to reinsert melendez. Pt states I can't have that tube put back in, it will hurt too bad, I'll scream and pt rolled over ont abdomen in bed. Dr Jeffery notified, new orders placed for Valium IV and lidocaine jelly for insertion of melendez. Pharmacy to bring medication (lidocaine jelly) to unit.
[2025-06-07] MEDS: diazePAM 10 MG/2 ML CARTRIDGE 5 MG IVPUSH (18:34)
[2025-06-07] MEDS: Lidocaine HCl 2 % Jelly 5 ML TUBE 1 APPL TOPICAL (18:38)
--- NOTE | 2025-06-07 18:50 | PC.NURSE ---
Pt medicated with IV valium and lidocaine jelly prior to melendez insertion. Pt tolerated melendez insertion fair. Melendez immediately drained for 1000ml andrea urine
[2025-06-07 20:00] VITALS: BP 153/80; PULSE 72; RESP 18; TEMP 36.6; O2SAT 96
[2025-06-07] MEDS: 0.9 % Sodium Chloride Flush 3 ML SYRINGE IVFLUSH (20:44)
[2025-06-08] VITALS: BP 145/83; PULSE 93; RESP 18; TEMP 37.1; O2SAT 94
[2025-06-08 04:00] VITALS: BP 138/78; PULSE 86; RESP 16; TEMP 36.8; O2SAT 100
[2025-06-08 07:26] VITALS: BP 176/73; PULSE 71; RESP 16; TEMP 36.1; O2SAT 96
[2025-06-08] MEDS: Lactated Ringers 1,000 ML 125 ML IVCONT ×3 (08:06→22:39)
--- NOTE | 2025-06-08 11:07 | HO.PM.IMPN ---
Subjective Subjective Date of Service: 06/08/25 Interval History: does not remember events from 06/07 Physical Exam Vital Signs: Vital Signs: Last Vital Signs Temp 97.0 F 06/08/25 07:26 Pulse 71 06/08/25 07:26 Resp 16 06/08/25 07:26 BP 176/73 H 06/08/25 07:26 Pulse Ox 96 06/08/25 07:26 O2 Del Method Room Air 06/08/25 07:26 O2 Flow Rate 2 06/06/25 06:13 BMI result Body Mass Index 28.9 General: AO X 3, no acute distress Resp: CTA bilateral, no accessory muscles used CVS: S1,S2,RRR GI: soft, non tender, non distended Neuro: motor grossly intact, alert Psych: appropriate affect, appropriate insight Objective Data Active Medications Acetaminophen (Acetaminophen 325 Mg Tablet) 650 mg PO Q6H PRN PRN Reason: Pain, Mild 1-3,fever,headache Last Admin: 06/07/25 05:00 Dose: 650 mg Documented By: ELIEZER Calcium Carbonate (Calcium Carbonate 750 Mg Tab.Chew) 750 mg PO Q4H PRN PRN Reason: Heartburn Ceftriaxone Sodium (Ceftriaxone Sodium 1 Gm Vial) 1 gm IVPUSH Q24H [facility] Last Admin: 06/07/25 20:42 Dose: 1 gm Documented By: ELIEZER Heparin Sodium (Porcine) (Heparin Sodium,Porcine 5,000 Unit/Ml Vial) 5,000 unit SUBCUT Q12H [facility] Last Admin: 06/08/25 09:20 Dose: 5,000 unit Documented By: CHRISTINE Lactated Ringer's (Lr) 1,000 mls @ 125 mls/hr IVCONT .Q8H [facility] Last Admin: 06/08/25 08:06 Dose: 125 mls/hr Documented By: CHRISTINE Magnesium Hydroxide (Milk Of Magnesia 30 Ml Oral.Susp) 30 ml PO DAILY PRN PRN Reason: Constipation Melatonin (Melatonin 3 Mg Tablet) 6 mg PO BEDTIME PRN PRN Reason: Insomnia Ondansetron HCl (Ondansetron Hcl 4 Mg/2 Ml Vial) 4 mg IVPUSH Q8H PRN PRN Reason: Nausea and Vomiting Last Admin: 06/07/25 17:52 Dose: 4 mg Documented By: YADY Sodium Chloride (0.9 % Sodium Chloride Flush 3 Ml Syringe) 3 ml IVFLUSH QSHIFT [facility] Last Admin: 06/08/25 09:21 Dose: Not Given Documented By: CHRISTINE Non-Admin Reason: IV Running Tamsulosin HCl (Tamsulosin Hcl 0.4 Mg Capsule) 0.4 mg PO BEDTIME [facility] Last Admin: 06/07/25 20:43 Dose: 0.4 mg Documented By: ELIEZER Labs 06/07/25 07:30 06/07/25 07:30 Labs: Laboratory Results - last 24 hr 06/07/25 06/07/25 11:34 11:40 VBG pH 7.48 H VBG pCO2 30 VBG pO2 112 VBG HCO3 23 VBG O2 Saturation 99.0 VBG Base Excess 0.7 Ammonia 38 Assessment and Plan (1) Hydronephrosis, right: Status: Acute Plan 65M no significant pmh presented with weakness found to have GUILLERMO and urinary retention GUILLERMO due to urinary retention, hyperkalemia resolved, continue flomax, failed voiding trial - keep melendez, outpatient urology follow up episodes of ams differntial includes hospital delerium, seizure, stroke now back to baseline, check MRI, EEG, neuro following dvt prophylaxis - hep sq full code reason for continued hospitalization: working up AMS Quality Stroke Does the patient have a stroke diagnosis?: No VTE Prior VTE?: No VTE Risk Level:: Medical - moderate - high VTE Device Contraindication: Treatment Not Indicated VTE Drug Contraindication: N/A - Med Ordered
--- NOTE | 2025-06-08 11:13 | P.EN_ITS ---
Event Note Date of Service: 06/08/25 Event Note: phone number for Estrellita caicedo: [phone] Time Spent With Patient Time: Total time managing care of this patient today ____ minutes.
--- NOTE | 2025-06-08 11:13 | PM.EVENT ---
Event Note Date of Service: 06/08/25 Event Note: phone number for Estrellita caicedo: [phone] Time Spent With Patient Time: Total time managing care of this patient today ____ minutes.
[2025-06-08 12:00] VITALS: BP 150/68; PULSE 82; RESP 18; TEMP 36.1; O2SAT 98
[2025-06-08 15:11] VITALS: BP 162/82; PULSE 77; RESP 18; TEMP 36.3; O2SAT 96
[2025-06-08 19:14] VITALS: BP 143/81; PULSE 86; RESP 18; TEMP 36.6; O2SAT 98
[2025-06-09] VITALS: BP 133/74; PULSE 80; RESP 16; TEMP 36.2; O2SAT 100
[2025-06-09 04:00] VITALS: BP 151/85; PULSE 73; RESP 16; TEMP 36.8; O2SAT 93
[2025-06-09 04:22] LABS: Hematocrit 38.6 % (42.0-52.0); Hemoglobin 13.4 g/dl (14.0-18.0); Mean Corpuscular HGB Conc 34.7 g/dl (31.0-36.0); Mean Corpuscular Hemoglobin 30.5 pg (27.0-33.0); Mean Corpuscular Volume 87.7 fL (80.0-98.0); NRBC Abs Auto 0.000 X10*3/uL (0.0-0.012); NRBC Pct Auto 0.0 /100WBC (0.0-0.2); Platelet Count 385 X10*3/uL (160-400); Red Blood Count 4.40 X10*6/uL (4.60-5.80); White Blood Count 8.8 X10*3/uL (4.8-10.8)
[2025-06-09 04:38] LABS: Anion Gap 13 (12-20); Blood Urea Nitrogen 13 mg/dL (9-16); Calcium 9.9 mg/dL (8.4-10.2); Carbon Dioxide 22 mmol/L (22-29); Chloride 105 mmol/L (96-108); Creatinine Clr Calc Pharmacy 69.1; Estimated Glomerular Filt Rate > 60; Potassium 4.0 mmol/L (3.3-5.1); Sodium 136 mmol/L (135-145)
[2025-06-09] MEDS: Lactated Ringers 1,000 ML 125 ML IVCONT (05:51)
[2025-06-09 07:29] VITALS: BP 166/91; PULSE 77; RESP 18; TEMP 36.3; O2SAT 97
--- NOTE | 2025-06-09 10:44 | P.DS_ITS ---
DS: Providers Provider Date of Service: 06/09/25 Date of admission: 06/05/25 19:43 Date of discharge: 06/09/25 Primary care physician: None Physician Consults: 06/05/25 19:55 Consult to Nephrology Routine Consulting Provider: [facility] Reason for consultation: GUILLERMO Consult to Urology Routine Consulting Provider: [facility] Reason for consultation: urinary retention 06/07/25 13:12 Consult to Neurology Routine Consulting Provider: [facility] Reason for consultation: episodes of aphasia, confusion, staring DS: Diagnosis Discharge Diagnosis (1) Hydronephrosis, right: Status: Acute DS: Summary Hospital Course Hospital Course: from initial hpi: 65-year-old male with no pertinent past medical history and not on prescription medications who presents to the emergency department for evaluation of chills and urinary incontinence. Patient states he has not seen a doctor in about 3 decades. He does not know of any past medical history and does not take any prescription home medications. He only takes an Aleve as needed for back pain when riding his motorcycle. Patient did have a physical examination done about 2 years ago but does not remember if he got blood work done. Patient presents today as 1 day prior to presentation he initially had difficulty urinating and thinks that he wet his bed at night. Also thinks he had night sweats but isn't sure. Has some right-sided abdominal discomfort, vague description, nonradiating, intermittent. No documented fever, chest pain, palpitations, shortness of breath, changes in bowel habits. States he has never had difficulty with urination before In the emergency department, creatinine found to be 14.1 with BUN 65 and potassium 6. PH 7.23 with bicarb 17. Nephrology was consulted and patient was initiated on bicarb fluids. hospital course: Patient was admitted for acute kidney injury due to urinary retention complicated by hyperkalemia. Melendez catheter was placed and was given IV hydration and Flomax. Potassium and creatinine returned to normal. Voiding trial was attempted but patient did not urinate on his own and Melendez catheter was replaced. Patient will be discharged with Melendez catheter and we will follow up with Urology as outpatient. Course was complicated by intermittent episodes of confusion on 06/07/2025 with expressive aphasia, echolalia, amnesia. Patient does not remember that day well, he has also been having trouble retaining new information. Workup included CT head and MRI which did not show significant pathology. EEG showed generalized slowing but no seizure activity. Recommendations were to could not drive or operate heavy machinery until cleared by Neurology. Patient will be discharged home and should follow up with Ne urology and Urology as outpatient. Time Attestation Discharge Coordination Time (in mins): 34 Quality: Safe Use of Opioids Does Pt have an Active Cancer Diagnosis on the Problem List?: No Quality: Stroke Does the patient have a stroke diagnosis?: No Physical Exam Exam: Exam: General: AO X 3, no acute distress Resp: CTA bilateral, no accessory muscles used CVS: S1,S2,RRR GI: soft, non tender, non distended Vital Signs: Vital Signs: Last Vital Signs Temp 97.4 F 06/09/25 07:29 Pulse 77 06/09/25 07:29 Resp 18 06/09/25 07:29 BP 166/91 H 06/09/25 07:29 Pulse Ox 97 06/09/25 07:29 O2 Del Method Room Air 06/09/25 07:29 O2 Flow Rate 2 06/06/25 06:13 BMI result Body Mass Index 28.9 DS: Data Data Completed and Pending Labs on day of discharge: Laboratory Results - last 24 hr 06/09/25 03:59 WBC 8.8 RBC 4.40 L Hgb 13.4 L Hct 38.6 L MCV 87.7 MCH 30.5 MCHC 34.7 RDW 11.7 Plt Count 385 MPV 10.3 Absolute Nucleated RBC 0.000 Nucleated RBC % (auto) 0.0 Sodium 136 Potassium 4.0 Chloride 105 Carbon Dioxide 22 Anion Gap 13 BUN 13 Creatinine 1.19 Estim Creat Clear Calc 69.1 Estimated GFR > 60 Random Glucose 98 Calcium 9.9 Discharge Plan Discharge Anticipated Discharge Date/Time: 06/09/25 10:41 Patient Disposition: Home, Self-Care Discharge Diagnosis: guillermo, urinary obstruction, ams Referrals: Brandt Romo MD [Physician, Urology] - 1 Week José Manuel Luna MD [Physician, Neurology] - 1 Week Physician,Araseli [Primary Care Provider, Medical] - 1 Week Discharge Medications: New tamsulosin 0.4 mg Capsule 0.4 mg PO BEDTIME Qty: 90 0RF Discharge Orders: Discharge Order (Routine); Ordered 06/09/25 Ordered By: Gualberto Jeffery Diet: Advance to usual diet Activity on Discharge: no driving Stand Alone Forms: Patient Portal Discharge page, Work/School Release Print Language: Bahamian Care Plan Goals: recovery Health Concerns: urinary retention, ams Plan of Treatment: started flomax, keep melendez until seen by urology no driving until cleared by neuro, follow up with neurology Assessment: see above
[2025-06-09 11:14] VITALS: BP 126/74; PULSE 82; RESP 18; TEMP 37.2; O2SAT 95
== END 2025-06-09 14:27 | disposition home or self-care (01) | DRG 465 ==
LOC: HO.ED 18:46 → HO.EDOVER 20:08 → HO.IMC 06-06 13:56
PROVIDERS: Nurse Practitioner Family; Physician Assistant Medical; Admitting Provider Student in an Organized Health Care Education/Training Program; Emergency Provider Emergency Medicine; Visit Provider Internal Medicine
DX: N13.30 Unspecified hydronephrosis (principal); N17.9 Acute kidney failure, unspecified; F05 Delirium due to known physiological condition; E87.5 Hyperkalemia; R03.0 Elevated blood-pressure reading, without diagnosis of hypertension; R47.01 Aphasia; R33.9 Retention of urine, unspecified
CPT/HCPCS: 36415; 70450; 70551; 74176; 80048; 80053; 81001; 82140; 82550; 82803; 83735; 85025; 85027; 93005; 95816; 99285; J0613; J0696; J1644; J1938; J2250; J2405; J3360; J3475; J7120

== ENCOUNTER → 2025-06-05 18:10 | Outpatient (BNV) | payer BC, SELFPAY | PROVIDERS: Admitting Provider Student in an Organized Health Care Education/Training Program; Emergency Provider Emergency Medicine; Visit Provider Internal Medicine | DX: R00.1 Bradycardia, unspecified (principal) | CPT/HCPCS: 93010 ==

== ENCOUNTER → 2025-06-05 18:24 | Outpatient (BNV) | payer SELFPAY | PROVIDERS: Admitting Provider Student in an Organized Health Care Education/Training Program; Emergency Provider Emergency Medicine; Visit Provider Radiology Diagnostic Radiology | DX: K80.20 Calculus of gallbladder without cholecystitis without obstruction (principal) | CPT/HCPCS: 74176 ==

== ENCOUNTER 2025-06-05 19:43 | Outpatient (BNV) | payer BC, SELFPAY | END 2025-06-07 11:00 | PROVIDERS: Admitting Provider Student in an Organized Health Care Education/Training Program; Emergency Provider Emergency Medicine; Visit Provider Psychiatry & Neurology Neurology | DX: R41.82 Altered mental status, unspecified (principal); R94.01 Abnormal electroencephalogram [EEG] | CPT/HCPCS: 95816 ==

== ENCOUNTER 2025-06-05 19:43 | Outpatient (BNV) | payer BC, SELFPAY | END 2025-06-07 11:15 | PROVIDERS: Admitting Provider Student in an Organized Health Care Education/Training Program; Emergency Provider Emergency Medicine; Visit Provider Radiology Diagnostic Radiology | DX: R41.82 Altered mental status, unspecified (principal) | CPT/HCPCS: 70450 ==

== ENCOUNTER 2025-06-05 19:43 | Outpatient (BNV) | payer BC, SELFPAY | END 2025-06-08 14:23 | PROVIDERS: Admitting Provider Student in an Organized Health Care Education/Training Program; Emergency Provider Emergency Medicine; Visit Provider Radiology Diagnostic Radiology | DX: R41.82 Altered mental status, unspecified (principal) | CPT/HCPCS: 70551 ==

== ENCOUNTER → 2025-06-05 19:43 | Outpatient (BNV) | payer BC, SELFPAY | PROVIDERS: Admitting Provider Student in an Organized Health Care Education/Training Program; Emergency Provider Emergency Medicine; Visit Provider Urology | DX: N13.9 Obstructive and reflux uropathy, unspecified (principal); N17.9 Acute kidney failure, unspecified; N13.30 Unspecified hydronephrosis | CPT/HCPCS: 99254 ==

== ENCOUNTER → 2025-06-05 19:43 | Outpatient (BNV) | payer BC, SELFPAY | PROVIDERS: Admitting Provider Student in an Organized Health Care Education/Training Program; Emergency Provider Emergency Medicine; Visit Provider Psychiatry & Neurology Neurology | DX: R41.82 Altered mental status, unspecified (principal) | CPT/HCPCS: 99233 ==

== ENCOUNTER → 2025-06-05 19:43 | Outpatient (BNV) | payer BC, SELFPAY | PROVIDERS: Admitting Provider Student in an Organized Health Care Education/Training Program; Emergency Provider Emergency Medicine; Visit Provider Student in an Organized Health Care Education/Training Program | DX: N17.9 Acute kidney failure, unspecified (principal); N13.9 Obstructive and reflux uropathy, unspecified; N13.30 Unspecified hydronephrosis | CPT/HCPCS: 99223 ==

== ENCOUNTER → 2025-06-05 19:43 | Outpatient (BNV) | payer BC, SELFPAY | PROVIDERS: Admitting Provider Student in an Organized Health Care Education/Training Program; Emergency Provider Emergency Medicine; Visit Provider Nurse Practitioner Family | DX: N17.9 Acute kidney failure, unspecified (principal) | CPT/HCPCS: 99231 ==

== ENCOUNTER 2025-06-14 09:37 | Outpatient (AMB) | payer BC, SELFPAY ==
--- NOTE | 2025-06-14 09:45 | HO.NEPHOV ---
Vital Signs 06/14/25 09:47 Height 5 ft 10 in Weight 197 lb 2 oz BMI 28.3 BP 114/80 Blood Pressure Location Rt brachial Position Sitting Pulse 88 Pulse Source Pulse Oximeter Pulse Oximetry (%) 96 Oxygen Delivery Method Room Air Intake [place] [facility] [facility] [place] F/U Mailmaster Required: No Accompanied by: Self / Same As Patient Allergies No Known Allergies Allergy (Verified 06/14/25 09:47) HPI Comments Details: 65 y/o male with no known medical history- pt reports has not seen a doctor or had any medical care for over 30 years. He is here for hospital follow up. Was hospitalized from 06/05-06/09, initially presented with acute urinary retention and GUILLERMO. GUILLERMO resolved relatively quickly after urinary obstruction resolved with melendez- creatinine went from 14 to 6 in less than 12 hours, and continued to normalize within a few days. Patient's renal function studies were normal on 06/09 prior to leaving the hospital. Of note, after nephrology signed off, per hospital notes, patient had an acute change in mental status. CT head with white matter disease and brain MRI were unremarkable. Neurology was consulted, seen by Dr Bland who recommended follow up with Dr Luna after EEG completed as he would be away. He reports he is feeling well, reports he still has the catheter in and has an appointment with urology, otherwise no new symptoms or concerns. 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 [facility] Family History (Updated 06/14/25 @ 09:46 by Kamla Kellogg MA) Mother Cancer Sister Cancer Social History Household Members: None Housing: Other Housing Other:: MOBILE HOME Do you presently have visiting nurse or other home services: No Patient Tobacco Use Status: Never used Tobacco service: Yes Review of Systems Const All systems reviewed & are unremarkable except as noted in HPI and below Physical Exam Vital Signs: Last Vital Signs Pulse 88 06/14/25 09:47 BP 114/80 06/14/25 09:47 Pulse Ox 96 06/14/25 09:47 Oxygen Delivery Method Room Air 06/14/25 09:47 BMI result Body Mass Index 28.3 Const General: no acute distress, alert and awake Resp Effort & Inspection: normal respiratory effort and able to speak in complete sentences Auscultation: clear to auscultation bilaterally Cardio Rate: regular rate Rhythm: regular rhythm Heart sounds: S1 normal heart sound present and S2 normal heart sound present GI Palpation (GI): Soft to palpation and nontender General: Yes no CVA tenderness Back/Spine/Pelvis Back: no CVA tenderness Skin Rashes: no rashes Extrem General: No edema Results Reviewed Nephrology Results: Hgb, (14.0-18.0) 13.4 g/dl L 06/09/25 WBC, (4.8-10.8) 8.8 X10*3/uL 06/09/25 Plt Count, (160-400) 385 X10*3/uL 06/09/25 Sodium, (135-145) 136 mmol/L 06/09/25 Potassium, (3.3-5.1) 4.0 mmol/L 06/09/25 Chloride, (96-108) 105 mmol/L 06/09/25 Carbon Dioxide, (22-29) 22 mmol/L 06/09/25 BUN, (9-16) 13 mg/dL 06/09/25 Creatinine, (0.5-1.4) 1.19 mg/dL 06/09/25 Calcium, (8.4-10.2) 9.9 mg/dL 06/09/25 Urine Protein, (Neg-Trace) Negative mg/dL 06/05/25 Assessment & Plan Assessment & Plan (1) GUILLERMO (acute kidney injury): Code(s): N17.9 - Acute kidney failure, unspecified Category: Medical Plan GUILLERMO secondary to urinary obstruction has resolved. Advised patient that from a renal standpoint I do not have any concerns about him returning to work. Advised as a kidney provider I cannot clear him to drive from a neurology standpoint- he will need to follow up with neurology. I placed a referral and gave patient phone number to call neurology as I do not see an outpatient appointment for neurology scheduled. Pt declines additional blood work in future to ensure stability of renal function. He may return as needed- recommended patient make an appointment to establish care with a primary care provider. Orders: Referrals Neurology Referral R41.82 - Altered mental status, unspecified Coding Level of Care Code Est Pt Level 2 (59768) Diagnoses GUILLERMO (acute kidney injury) N17.9
[2025-06-14 09:47] VITALS: BP 114/80; PULSE 88; O2SAT 96; BMI 28.3
--- OUTSIDE RECORDS SUMMARY | 2025-06-14 10:09 | XMS_ITS | Clinical Summary ---
Author Organization [facility] ity Address [address] [place] [address] Care Team Providers Care Release Of Information Clerk Name Role Phone Unavailable Primary Care Provider Unavailabl e Social History Tobacco Use Types Packs/Day Years Used Date Smoking Tobacco: Never Assessed Sex and Gender Information Value Date Recorded Sex Assigned at Not on file Legal Sex Male 12:06 PM EST Gender Identity Not on file Sexual Orientation Not on file Obstetrics History Plan of Treatment Health Maintenance Due Date Last Done Comments Pneumococcal Vaccine: 50+ Ye ars (1 of 1 - PCV) 2011 Zoster Vaccines (1 of 2) 2011 COVID-19 Vaccine ( - 2023-2 5 season) 2024 Depression Screening 11/23/2024 Influenza Vaccine (#1) 2025 DTaP,Tdap,and Td Vaccines (2 - Td or Tdap) 04/30/2029 04/30/2019 RSV Immunization Adult Patie nts (1 - 1-dose 75+ series) 2036 HIB Vaccines Aged Out No longer eligi ble based on patient's age to complete this topic HPV Vaccines Aged Out No longer eligi ble based on patient's age to complete this topic Hepatitis A Vaccines Aged Out No long er eligible based on patient's age to complete this topic Hepatitis B Vaccines Aged Out No long er eligible based on patient's age to complete this topic IPV Vaccines Aged Out No longer eligi ble based on patient's age to complete this topic MMR Vaccines Aged Out No longer eligi ble based on patient's age to complete this topic Meningococcal ACWY Vaccine Aged Out N o longer eligible based on patient's age to complete this topic Meningococcal B Vaccine Aged Out No l onger eligible based on patient's age to complete this topic RSV Immunization Patients Un harpreet 20 months Aged Out No longer eligible b ased on patient's age to complete this topic Varicella Vaccines Aged Out No longer eligible based on patient's age to complete this topic
--- OUTSIDE RECORDS SUMMARY | 2025-06-14 10:09 | XMS_ITS | Clinical Summary ---
Author Organization [facility] Address [address] [place] [address] Care Team Providers Care Senior Network Systems Engineer Name Role Phone Unavailable Primary Care Provider Unavailabl e Allergies No known active allergies Medications No known medications Active Problems Problem Noted Date Diagnosed Date Left arm pain 05/30/2019 Acute right hip pain 05/30/2019 Immunizations Name Administration Dates Next Due Adacel (Tdap) 04/30/2019,04/30/2019(Deferred: Other) Social History Tobacco Use Types Packs/Day Years Used Date Smoking Tobacco: Never Assessed Sex and Gender Information Value Date Recorded Sex Assigned at Male 04/30/2019 5:35 PM EDT Gender Identity Not on file Sexual Orientation Not on file Last Filed Vital Signs Vital Sign Reading Time Taken Comments Blood Pressure 146/94 04/30/2019 9:08 PM EDT Pulse 94 04/30/2019 9:08 PM EDT Temperature 36.8 C (98.2 F) 04/30/2019 9:08 PM EDT Respiratory Rate 19 04/30/2019 9:08 PM EDT Oxygen Saturation 99% 04/30/2019 9:08 PM EDT Inhaled Oxygen Concentration - - Weight - - Height - - Body Mass Index - - Plan of Treatment Health Maintenance Due Date Last Done Comments Hepatitis C Screening 1961 COVID-19 Vaccine (#1) 1961 Depression Screening 1973 Preventative Health Evaluation 1979 Colon Cancer Screening (Colonoscopy) 2006 Shingrix-Zoster Vaccine (1 of 2) 2011 Influenza Vaccine (#1) 2025 Pneumococcal Vaccine (1 of 1 - PCV) 2026 DTap / Tdap / Td (2 - Td or Tdap) 04/30/2029 06/08/2 019 RSV Adult > 60+ Yrs or Pregn ant (1 - 1-dose 75+ series) 2036 Hepatitis B Vaccines Aged Out No long er eligible based on patient's age to complete this topic Pneumococcal Vaccine Aged Out No long er eligible based on patient's age to complete this topic RSV Ped < 20 months Aged Out No longe r eligible based on patient's age to complete this topic Advance Directives For more information, please contact: [phone] Latest Code Status on File Code Status Date Activated Date Inactivated Comments Full Code 04/30/2019 4:18 PM 05/01/2019 3:59 AM This co de status was ascertained in the following way: discussion with patient . Code Status History Code Status Date Activated Date Inactivated Comments Full Code 04/30/2019 4:08 PM 04/30/2019 4:18 PM This co de status was ascertained in the following way: discussion with patient .
== END 2025-06-14 10:06 | disposition home or self-care (01) ==
LOC: HO.HKA 09:38
PROVIDERS: Visit Provider Nurse Practitioner Family
DX: N17.9 Acute kidney failure, unspecified (principal)
CPT/HCPCS: 99212

== ENCOUNTER 2025-06-15 12:06 | Outpatient (AMB) | payer BC, SELFPAY ==
--- NOTE | 2025-06-15 12:17 | MHC.OFFVIS ---
Intake Visit Reasons: ED f/u for: Confusion, slurring and staring spells Allergies No Known Allergies Allergy (Verified 06/14/25 09:47) HPI Comments Details: 65 yo LH man who was admitted at [facility] with acute renal failure associated with inability to urinate, which was treated with Velasquez's catheterization. He was also confused with echolalic speech around that time and had a CT and MRI of brain revealing abnormalities. He said that now he was doing fine and wanted to go back to work. 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 [facility] Family History (Updated 06/14/25 @ 09:46 by Kamla Kellogg MA) Mother Cancer Sister Cancer Social History Household Members: None Housing: Other Housing Other:: MOBILE HOME Do you presently have visiting nurse or other home services: No Patient Tobacco Use Status: Never used Tobacco service: Yes Review of Systems Const Details: Constitutional:?No fever, chills, fatigue, weight loss, or night sweats. HEENT:?No headache, vision changes, hearing loss, nasal congestion, sore throat. Neurological:?No dizziness, syncope, seizures, numbness, tingling, weakness, tremors, memory loss. Psychiatric:?No anxiety, depression, mood swings, sleep disturbance, or hallucinations. Endocrine:?No heat/cold intolerance, polydipsia, polyuria, or hair/skin changes. Hematologic/Lymphatic:?No easy bruising, bleeding, or lymphadenopathy. Integumentary (Skin):?No rash, lesions, itching, or color changes. ? Physical Exam Neuro Other: Mental Status: Alert and oriented to person, place, and time. Normal attention. Normal spontaneous speech, fluency, and comprehension. No obvious issues with mood and memory. Affect is appropriate. Cranial Nerves: CN II: Visual ang full to confrontation, visual acuity intact. CN III, IV, : Pupils equal, round, reactive to light and accommodation. Extraocular movements are normal. CN V: Facial sensation is normal. CN VII: Facial movements symmetrical. CN VIII: Hearing intact to bedside conversation is normal. CN IX, X: Palate elevates symmetrically. CN XI: Shoulder shrug and head turn symmetrical. CN XII: Tongue midline without atrophy or fasciculations. Extrapyramidal: Full facial expressions and blinking. No rigidity. Movements are appropriate with no tremor or abnormality. Speech: Normal; no dysarthria or tremor. Assessment & Plan Assessment & Plan (1) White matter abnormality on MRI of brain: Comment: CT brain WO at [facility] in May 2025: Mild WM hypodensities MRI brain WO at [facility] in May 2025: Extensive b/l WM lesions, somewhat suggestive of chronic demyelinating disease more than ischemic EEG at [facility] in May 2025: Slow Code(s): R90.82 - White matter disease, unspecified Category: Medical Plan Impression: a: Change in mental status when he was admitted at [facility] with acute renal failure, now improved. b: Extensive white matter changes on brain MRI with no h/o HTN or any prior significant medical issue suggestive of demylinating disease Rec: a: See a urologist for management of urological issues, which may or may not have any relationship to the brain pathology. He denied any prior problem with urination b: No intervention is needed at this time for brain MRI finding. It does put him at risk for encephalopathy incase of any other medical issues like an infection. c: PRN f/u Coding Level of Care Code Tele Est Pt Level 5 (71241) Diagnoses White matter abnormality on MRI of brain R90.82
--- OUTSIDE RECORDS SUMMARY | 2025-06-15 12:43 | XMS_ITS | Clinical Summary ---
Author Organization [facility] Address [address] [place] [address] Care Team Providers Care Visual Design Lead Name Role Phone Unavailable Primary Care Provider [...] Advance Directives For more information, please contact: [phone] Latest Code Status on File Code Status [...]
--- OUTSIDE RECORDS SUMMARY | 2025-06-15 12:43 | XMS_ITS | Clinical Summary ---
Author Organization [facility] Address [address] [place] [address] Care Team Providers Care Edging Supervisor Name Role Phone Unavailable Primary Care Provider [...]
== END 2025-06-15 12:39 | disposition home or self-care (01) ==
LOC: HO.HSM 12:06
PROVIDERS: Visit Provider Psychiatry & Neurology Neurology
DX: R90.82 White matter disease, unspecified (principal)
CPT/HCPCS: 99214

== ENCOUNTER 2025-06-29 08:20 | Outpatient (REF) | payer BC, SELFPAY ==
--- NOTE | ~2025-06-29 | US_ITS ---
CLINICAL HISTORY: N17.9 - Acute kidney failure, unspecified US Renal Comparison: CT/SR - CT ABDOMEN PELVIS WO IV CON - 06/05/25 19:30 EDT Findings: Right kidney normal size and echotexture, 11.2 cm length. A benign cyst at the superior pole measures 7.6 x 6.2 x 5.7 cm. Left kidney normal size and echotexture, 11.9 cm length. A benign cyst at the superior pole measures 4.0 x 3.4 x 4.3 cm. No collecting system dilatation of either kidney. Normal color Doppler. IMPRESSION: Bilateral benign renal cysts, otherwise unremarkable. This document has been electronically signed by: Sunday Kennedy DO on 06/29/2025 11:13:37
--- OUTSIDE RECORDS SUMMARY | 2025-06-29 08:26 | XMS_ITS | Clinical Summary ---
Author Organization [facility] Address [address] [place] [address] Care Team Providers Care Roof Assembler Name Role Phone Unavailable Primary Care Provider [...] Advance Directives For more information, please contact: [phone] Latest Code Status on File Code Status [...]
--- OUTSIDE RECORDS SUMMARY | 2025-06-29 08:26 | XMS_ITS | Clinical Summary ---
Author Organization [facility] Address [address] [place] [address] Care Team Providers Care Remelt Furnace Expediter Name Role Phone Unavailable Primary Care Provider [...]
== END 2025-06-29 08:21 | disposition home or self-care (01) ==
LOC: HO.US 08:20
PROVIDERS: Visit Provider Urology
DX: N17.9 Acute kidney failure, unspecified (principal); N13.30 Unspecified hydronephrosis; N13.9 Obstructive and reflux uropathy, unspecified
CPT/HCPCS: 76775

== ENCOUNTER → 2025-06-29 08:21 | Outpatient (BNV) | payer BC, SELFPAY | PROVIDERS: Visit Provider Radiology Diagnostic Radiology | DX: N17.9 Acute kidney failure, unspecified (principal) | CPT/HCPCS: 76775 ==

== ENCOUNTER 2025-07-06 08:06 | Outpatient (AMB) | payer BC, SELFPAY ==
--- OUTSIDE RECORDS SUMMARY | 2025-07-06 08:11 | XMS_ITS | Clinical Summary ---
Author Organization [facility] Address [address] [place] [address] Care Team Providers Care Dam Attendant Name Role Phone Unavailable Primary Care Provider [...] Advance Directives For more information, please contact: [phone] Latest Code Status on File Code Status [...]
--- OUTSIDE RECORDS SUMMARY | 2025-07-06 08:12 | XMS_ITS | Clinical Summary ---
Author Organization [facility] Address [address] [place] [address] Care Team Providers Care Bilingual Trainer Name Role Phone Unavailable Primary Care Provider [...]
--- NOTE | 2025-07-06 08:39 | MHC.OFFVIS ---
Intake Visit Reasons: US/Voiding Trial Intake Note: Patient is present for US/VOIDING TRIAL Urology Medication:TAMULOSIN Antibiotic Allergy:NONE Blood Thinner:NONE PVR:287ML'S Machine Greaser Required: No Allergies No Known Allergies Allergy (Verified 07/06/25 08:40) HPI Comments Details: Gavino is a pleasant male. No listed primary care physician. He is seen for the following urologic conditions - urinary retention - lower urinary tract symptoms Here for voiding trial Initial presentation to emergency room with inability to void Melendez catheter placed for 300 cc output however may have been as much as 1600 cc as documentation was incomplete Internal creatinine 14 now down to 1.2 Imaging - CT There is mild edema along the right renal pelvis. Moderate right hydronephrosis. Mild right hydroureter. No right renal or ureteral calculus. Continue with tamsulosin He failed voiding trial with 280 cc residual Was not interested in having Melendez catheter replaced Was given wanting of retention He will call if has problems Three-month follow-up [facility] Family History (Updated 06/14/25 @ 09:46 by Kamla Kellogg MA) Mother Cancer Sister Cancer Social History Household Members: None Housing: Other Housing Other:: MOBILE HOME Do you presently have visiting nurse or other home services: No Patient Tobacco Use Status: Never used Tobacco service: Yes Review of Systems Const Denies chills and Denies fever(s) Card Reports no additional complaints and Denies syncope Resp Denies cough GI Denies abdominal pain and Denies heartburn Reports as per HPI and Denies change in libido Neuro Denies syncope Psych Denies change in libido Endo Denies change in libido Physical Exam Const General: cooperative, healthy appearing, comfortable and no acute distress Orientation/consciousness: patient oriented x3 HEENT Face and sinus: Yes normal facial exam Mouth: moist mucous membranes Neck Neck: Yes normal visual inspection, Yes full ROM and Yes trachea midline Chest Chest palpation & inspection: normal inspection of the chest Resp Effort & Inspection: normal respiratory effort, able to speak in complete sentences and no respiratory distress GI Inspection: Yes normal to inspection Back/Spine/Pelvis Cervical Spine: normal cervical lordosis Thoracic/Lumbar Spine: thoracic and lumbar spine normal to inspection Skin General skin exam: no rashes or lesions noted Neuro General: patient oriented x3, gait normal, tone normal and moves all extremities Extrem General: Yes normal to inspection and Yes capillary refill normal Office Procedures Bladder/Catheter Procedure Details: Patient presents to office for voiding trial s/p urinary retention. 120mls sterile water instilled through catheter, patient tolerated well. Removed 16fr melendez catheter, patient tolerated removal well. Patient not able to void. Dr. Romo in room for patient visit. New 16 Fr melendez catheter with 10mls inserted. Patient tolerated. Patient to make 4 week appointment with nursing for repeat voiding trial. 36124-Thttktnmks of Bladder Procedure code (CPT) selection complete Post Void Residual Post Residual Void Post Void Residual (PVR): 287 18985-Rwrh Void Residual by ultrasound Assessment & Plan Assessment & Plan (1) Urinary obstruction: Code(s): N13.9 - Obstructive and reflux uropathy, unspecified Category: Medical (2) Bladder outlet obstruction: Code(s): N32.0 - Bladder-neck obstruction Category: Medical Plan Continue tamsulosin Three-month follow-up PVR Orders: Orders AMB Bladder/Catheter Procedure Today N13.9 - Obstructive and reflux uropathy, unspecified AMB Post Void Residual by ultrasound Today N13.9 - Obstructive and reflux uropathy, unspecified Patient Instructions: This note is constructed using voice recognition software. While every effort has been made to ensure accuracy sales representative printing errors may have been included. Imaging studies, laboratory and physical exam results were discussed and reviewed in detail. No major barriers to patient understanding were identified. An opportunity to ask questions regarding the treatment plan was provided. All questions were answered. The patient expressed understanding and agreement with the above treatment plan. The patient is aware they should contact our office by phone for worsening of their current condition or the appearance of new urologic symptoms. Compliance is encouraged with any medications and followup testing that is ordered. It is a privilege to participate in the urologic care of your patient. If you have any questions or concerns regarding treatment for the above conditions, or other urologic issues, please do not hesitate to contact me. The office telephone contact is [phone]. Sincerely, Dr Brandt Romo MD, [facility] - Urology Compassionate Specialist Care for the Genitourinary System Coding Level of Care Code Est Pt Level 4 (62504) Diagnoses Urinary obstruction N13.9 Bladder outlet obstruction N32.0 CPT Codes Bladder/Catheter Procedure - CPT: 84153-Koatnsyajs of Bladder ([id number]) Post Residual Void - PVR CPT Code: 96846-Tjet Void Residual by ultrasound ([id number])
== END 2025-07-06 09:47 | disposition home or self-care (01) ==
LOC: HO.HUSH 08:08
PROVIDERS: Visit Provider Urology
DX: N13.9 Obstructive and reflux uropathy, unspecified (principal); N32.0 Bladder-neck obstruction
CPT/HCPCS: 51700; 99214

== ENCOUNTER → 2025-07-06 08:06 | Outpatient (BNVA) | payer BC, SELFPAY | PROVIDERS: Visit Provider Urology | DX: N32.0 Bladder-neck obstruction (principal); N13.9 Obstructive and reflux uropathy, unspecified | CPT/HCPCS: 51700; 51702; 51798 ==

== ENCOUNTER 2025-07-06 13:20 | Outpatient (AMB) | payer BC, SELFPAY ==
--- NOTE | 2025-07-06 13:42 | AM.OFFVISNUR ---
Intake Visit Reasons: Catheter insertion Allergies No Known Allergies Allergy (Verified 07/06/25 08:40) Office Procedures Bladder/Catheter Procedure Details: Patient presents to the office today after failing voiding trial this morning. Patient only able to void small amounts at a time and not able to completely empty. Patient voided small amount on arrival. PVR scan was 820ml. New 18Fr David with 10ml and flip valve inserted. Patient tolerated insertion with some discomfort. Emptied out 700ml of urine right away. Patient had immediate relief. Patient educated on how to use flip valve and to empty every 3-4 hours in day time and educated on how to attach night bag. Plan for patient to return in 4 week for repeat voiding trial. 32868-Jphpel Temporary Bladder Catheter Procedure code (CPT) selection complete Post Void Residual Post Residual Void Post Void Residual (PVR): 820 75653-Mczy Void Residual by ultrasound Assessment & Plan Assessment & Plan Orders: Orders AMB Bladder/Catheter Procedure Today N13.9 - Obstructive and reflux uropathy, unspecified, N32.0 - Bladder-neck obstruction AMB Post Void Residual by ultrasound Today N13.9 - Obstructive and reflux uropathy, unspecified, N32.0 - Bladder-neck obstruction Coding CPT Codes Bladder/Catheter Procedure - CPT: 24411-Yaooqu Temporary Bladder Catheter ([id number]) Post Residual Void - PVR CPT Code: 93636-Milq Void Residual by ultrasound ([id number])
== END 2025-07-06 13:49 | disposition home or self-care (01) ==
LOC: HO.HUSH 13:20
PROVIDERS: Visit Provider Urology
DX: N32.0 Bladder-neck obstruction (principal); N13.9 Obstructive and reflux uropathy, unspecified
CPT/HCPCS: 51702

== ENCOUNTER 2025-08-03 13:29 | Outpatient (AMB) | payer BC, SELFPAY ==
--- NOTE | 2025-08-03 13:29 | A.OFFVIS_ITS ---
Intake Visit Reasons: Ques-med/cath- can't do video, phone only Intake Note: Patient is present for follow up has questions on his medication and catheter Urology Medication:TAMULOSIN Antibiotic Allergy:NONE Blood Thinner:NONE LAST PVR:287ML'S Reservoir Engineer Required: No Accompanied by: Self / Same As Patient Allergies No Known Allergies Allergy (Verified 08/03/25 13:30) HPI Comments Details: Gavino is a pleasant male. No listed primary care physician. He is seen for the following urologic conditions - urinary retention - lower urinary tract symptoms Telemedicine Evaluation 15 min Consultation Bringrs Heidi Video Failed last voiding trial in office His questions about what happens next Highlighted process with voiding trial, need for clean intermittent catheterization or progression to suprapubic tube Urinary retention Initial presentation to emergency room with inability to void Velasquez catheter placed for 300 cc output however may have been as much as 1600 cc as documentation was incomplete Internal creatinine 14 now down to 1.2 Imaging - CT - There is mild edema along the right renal pelvis. Moderate right hydronephrosis. Mild right hydroureter. No right renal or ureteral calculus. Continue with tamsulosin He failed voiding trial with 280 cc residual Was not interested in having Velasquez catheter replaced PFSH Family History (Updated 06/14/25 @ 09:46 by Kamla Kellogg MA) Mother Cancer Sister Cancer Social History Household Members: None Housing: Other Housing Other:: MOBILE HOME Do you presently have visiting nurse or other home services: No Patient Tobacco Use Status: Never used Tobacco service: Yes Review of Systems Const All systems reviewed & are unremarkable except as noted in HPI and below Reports no additional complaints Resp Reports no additional complaints GI Reports no additional complaints Reports as per HPI Musc Reports no additional complaints Physical Exam Telemedicine evaluation Appropriate responses Regular breathing rate and rhythm HEENT Head: Yes normal to inspection Ears: hearing grossly normal bilaterally Eyes General: appearance normal, both eyes and all related structures Neck Neck: Yes normal visual inspection Chest Chest palpation & inspection: normal inspection of the chest Resp Effort & Inspection: normal respiratory effort and able to speak in complete sentences Telehealth Telehealth Telehealth Platform: Bringrs Location of provider rendering services: practice address Location of patient: address on file Patient Identification confirmed using: Name, : Yes Telehealth method: voice only Patient verbally consented to treatment: Yes Patient verbally consented to billing insurance company: Yes Patient informed of any privacy concerns related to visit: Yes Minutes spent on Phone/Video with Pt.: 15 Assessment & Plan Assessment & Plan (1) Urinary retention with incomplete bladder emptying: Code(s): R33.9 - Retention of urine, unspecified Category: Medical Plan Voiding trial is planned Patient Instructions: This note is constructed using voice recognition software. While every effort has been made to ensure accuracy filling and packing supervisor errors may have been included. Imaging studies, laboratory and physical exam results were discussed and reviewed in detail. No major barriers to patient understanding were identified. An opportunity to ask questions regarding the treatment plan was provided. All questions were answered. The patient expressed understanding and agreement with the above treatment plan. The patient is aware they should contact our office by phone for worsening of their current condition or the appearance of new urologic symptoms. Compliance is encouraged with any medications and followup testing that is ordered. It is a privilege to participate in the urologic care of your patient. If you have any questions or concerns regarding treatment for the above conditions, or other urologic issues, please do not hesitate to contact me. The office telephone contact is [phone]. Sincerely, Dr Brandt Romo MD, [facility] - Urology Compassionate Specialist Care for the Genitourinary System Coding Level of Care Code Tele Est Pt Level 3 (64379) Diagnoses Urinary retention with incomplete bladder emptying R33.9
--- OUTSIDE RECORDS SUMMARY | 2025-08-03 17:25 | XMS_ITS | Clinical Summary ---
Author Organization [facility] Address [address] [place] [address] Care Team Providers Care Dental Insurance Coordinator Name Role Phone Unavailable Primary Care Provider [...] Advance Directives For more information, please contact: [phone] Latest Code Status on File Code Status [...]
== END 2025-08-03 14:37 | disposition home or self-care (01) ==
LOC: HO.HUSH 13:29
PROVIDERS: Visit Provider Urology
DX: R33.9 Retention of urine, unspecified (principal)
CPT/HCPCS: 99213

== ENCOUNTER → 2025-08-04 08:29 | Outpatient (BNVA) | payer BC, SELFPAY | PROVIDERS: Visit Provider Urology | DX: N32.0 Bladder-neck obstruction (principal); N13.9 Obstructive and reflux uropathy, unspecified | CPT/HCPCS: 51700; 51702; 51798 ==